=== PATIENT | female | born 1995 | race Caucasian/White ===

== ENCOUNTER 2016-07-27 06:32 | Emergency (ER) | payer OTHER ==
[2016-07-27] MEDS ORDERED: Ondansetron INJ* 2 MG/ML VIAL IV ONE (06:53)
[2016-07-27] MEDS ORDERED: NS 0.9% 1000 ML* 1,000 ML IV ONE ×2 (06:53→12:24)
[2016-07-27 07:16] LABS: Hematocrit 42 % (35-47); Mean Corpuscular HGB Conc 33 g/dl (31-36); Mean Corpuscular Hemoglobin 28 pg (27-31); Mean Corpuscular Volume 85 fL (80-97); Mean Platelet Volume 9 um3 (7.4-10.4); Red Blood Count 4.99 10^6/ul (4.0-5.4); Red Cell Distribution Width 13 % (10.5-15); White Blood Count 10.3 10^3/ul (3.5-10.8)
[2016-07-27] MEDS ORDERED: Morphine INJ* 4 MG/ML 1 ML SYRINGE IV ONE (07:25)
[2016-07-27 07:31] LABS: Albumin 4.5 g/dL (3.2-5.2); BUN/Creatinine Ratio 16.3 (8-20); C Reactive Protein 4.01 mg/L (< 5.00); Calcium 9.7 mg/dL (8.6-10.3); EGFR African American 93.1 (>60); EGFR Non-African American 72.4 (>60); Globulin 3.1 g/dL (2-4); Magnesium 1.6 mg/dL (1.9-2.7); Potassium 3.7 mmol/L (3.5-5.0); Total Bilirubin 0.4 mg/dL (0.2-1.0); Total Protein 7.6 g/dL (6.4-8.9)
--- NOTE | 2016-07-27 08:29 | RAD ---
INDICATION: ] Right upper quadrant pain. Vomiting. COMPARISON: None TECHNIQUE: Longitudinal and transverse scans of the right upper quadrant were obtained. Doppler interrogation of the hepatic and portal venous system was performed. FINDINGS: Liver: The liver is normal in size and echogenicity. There are no focal masses. The liver measures 17.3 cm in cephalocaudal dimension. Vessels: There is normal hepatic and portal venous flow. Bile ducts: There is no evidence of intrahepatic or extrahepatic ductal dilatation. The common duct measures 0.2 cm. Gallbladder: The sonographic appearance of the gallbladder is normal. There is no evidence of cholelithiasis, thickening of the gallbladder wall, or pericholecystic fluid. Pancreas: The visualized pancreas appears normal Right kidney: The right kidney is normal in size and echogenicity. There are no masses or calculi. There is no evidence of hydronephrosis. The right kidney measures 10.6 x 3.6 x 5.2 cm. IVC and aorta: The aorta and superior vena cava appear normal. Fluid: There is no ascites. Other: None. IMPRESSION: NORMAL STUDY.
[2016-07-27] MEDS ORDERED: Al Hydrox/Mg Hydrox/Simet LIQ* 30 ML UDC PO ONE (08:39)
[2016-07-27] MEDS ORDERED: Lidocaine 2% VISCOUS* 15 ML UDC PO ONE (08:39)
[2016-07-27] MEDS ORDERED: Lidocaine 2% VISCOUS* 15 ML UDC ONE (09:57)
[2016-07-27] MEDS ORDERED: oxyCODONE/Acetamin 5/325 MG* TAB PO ONE (10:31)
--- NOTE | 2016-07-27 11:03 | RAD ---
Indication: Epigastric pain and vomiting since this morning. Post appendectomy. Comparison: Abdominal ultrasound of the same date. Technique: Supine and upright abdomen. Report: Negative for free air beneath the diaphragm. Moderately distended stomach with air-fluid level. No dilated small or large bowel loops evident. Negative for significant small or large bowel air-fluid levels. No suspicious calcifications or mass effect. Unremarkable soft tissue contours. Clear lung bases. IMPRESSION: No acute abdominal pelvic pathologic process evident.
[2016-07-27] MEDS ORDERED: Acetaminophen TAB* 325 MG PO ONE (12:24)
[2016-07-27 13:34] VITALS: BP 106/50
--- NOTE | 2016-07-27 16:31 | ED ---
Shane Henry Adam, scribed for Cody Velázquez MD on 07/27/16 at 0832 . Abdominal Pain/Female - HPI Summary HPI Summary: Pt is a 20 year old female presenting with abdominal pain. The pain set on at approximately 00:00 this morning. It has been constant but fluctuating in severity. It radiates to her back as well. Pt also reports vomiting and chills. She took Tylenol but vomited it up. She states that she has not had much of an appetite. She last ate some pears at approximately 01:00. Before that she had eaten food yesterday at 12:00 and 17:00, including meatballs. Pt denies constipation, diarrhea, urinary symptoms, and black stools. She denies ever having this pain before. Positive hx of appy. She denies hx of gall stones or gastric ulcers. She denies any other PMHx. Pt has a 3 month old son and has not had a MP yet since the . - History of Current Complaint Chief Complaint: EDAbdPain Stated Complaint: VOMITING/ABD PAIN Time Seen by Provider: 07/27/16 07:18 Hx Obtained From: Patient Onset/Duration: Sudden Onset, Lasting Hours, Still Present Timing: Constant Severity Initially: Moderate Severity Currently: Moderate Pain Intensity: 9 Pain Scale Used: 0-10 Numeric Location: Diffuse, Discrete At: RUQ, Epigastric Radiates: Yes Radiates to: Back Aggravating Factor(s): Nothing Alleviating Factor(s): Nothing Associated Signs and Symptoms: Positive: Vomiting, Other: - Chills. Negative: Constipation, Blood in Stool, Urinary Symptoms, Diarrhea Allergies/Adverse Reactions: Allergies Allergy/AdvReac Type Severity Reaction Status Date / Time Ampicillin Allergy Intermediate Itching Verified 04/19/16 06:22 PMH/Surg Hx/FS Hx/Imm Hx Respiratory History: Reports: Hx Asthma - SPORTS INDUCED ASTHMA Sensory History: Denies: Hx Contacts or Glasses, Hx Hearing Aid Opthamlomology History: Denies: Hx Contacts or Glasses Neurological History: Reports: Hx Migraine - 1 Q 3 MONTHS- [place] WITH IBUPROFEN AND TYLENOL Psychiatric History: Reports: Hx Anxiety - on zoloft, Hx Depression Denies: Hx Eating Disorder, Hx of Violent Episodes Against Others - Surgical History Surgery Procedure, Year, and Place: WISDOM TEETH-05/2013[facility]; July 19, 2013 appendectomy and cauterized lesion endometiosis Hx Anesthesia Reactions: No Infectious Disease History: No Infectious Disease History: Denies: History Other Infectious Disease, Traveled Outside the [place] in Last 30 Days - Family History Known Family History: Positive: Other - Bipolar (father) - Social History Occupation: Employed Full-time Lives: With Family - Mother Alcohol Use: None Hx Substance Use: No Substance Use Type: Reports: None Hx Tobacco Use: No Smoking Status (MU): Never Smoked Tobacco Have You Smoked in the Last Year: No Review of Systems Positive: Chills. Negative: Fever Negative: Erythema Negative: Sore Throat Negative: Chest Pain Negative: Shortness Of Breath, Cough Positive: Abdominal Pain, Vomiting, Nausea. Negative: Diarrhea Genitourinary: Negative Negative: dysuria, hematuria Negative: Myalgia, Edema Negative: Rash Neurological: Other - Negative dizziness All Other Systems Reviewed And Are Negative: Yes Physical Exam - Summary Physical Exam Summary: Constitutional: Well-developed, Well-nourished, Alert. (-) Distressed Skin: Warm, Dry HENT: Normocephalic; Atraumatic Eyes: Conjunctiva normal Neck: Musculoskeletal ROM normal neck. (-) JVD, (-) Stridor, (-) Tracheal deviation Cardio: Rhythm regular, rate normal, Heart sounds normal; Intact distal pulses; The pedal pulses are 2+ and symmetric. Radial pulses are 2+ and symmetric. (-) Murmur Pulmonary/Chest wall: Effort normal. (-) Respiratory distress, (-) Wheezes, (-) Rales Abd: Tenderness in the RUQ and epigastric region with guarding. Musculoskeletal: (-) Edema Lymph: (-) Cervical adenopathy Neuro: Alert, Oriented x3 Psych: Mood and affect Normal Triage Information Reviewed: Yes Vital Signs On Initial Exam: Initial Vitals Temp Pulse Resp BP Pulse Ox 97.6 F 92 18 136/75 96 07/27/16 06:33 07/27/16 06:33 07/27/16 06:33 07/27/16 06:33 07/27/16 06:33 Vital Signs Reviewed: Yes - [place] Coma Scale Coma Scale Total: 15 Diagnostics - Vital Signs Vital Signs Temp Pulse Resp BP Pulse Ox 07/27/16 07:00 93 96 07/27/16 06:51 86 138/82 97 07/27/16 06:41 89 98 07/27/16 06:33 97.6 F 92 18 136/75 96 - Laboratory Lab Results: Lab Results 07/27/16 Range/Units 07:07 WBC 10.3 (3.5-10.8) 10^3/ul RBC 4.99 (4.0-5.4) 10^6/ul Hgb 14.0 (12.0-16.0) g/dl Hct 42 (35-47) % MCV 85 (80-97) fL MCH 28 (27-31) pg MCHC 33 (31-36) g/dl RDW 13 (10.5-15) % Plt Count 251 (150-450) 10^3/ul MPV 9 (7.4-10.4) um3 Neut % (Auto) 86.1 H (38-83) % Lymph % (Auto) 9.4 L (25-47) % [place] % (Auto) 3.7 (1-9) % Eos % (Auto) 0.5 (0-6) % Baso % (Auto) 0.3 (0-2) % Absolute Neuts (auto) 8.9 H (1.5-7.7) 10^3/ul Absolute Lymphs (auto) 1.0 (1.0-4.8) 10^3/ul Absolute Monos (auto) 0.4 (0-0.8) 10^3/ul Absolute Eos (auto) 0.1 (0-0.6) 10^3/ul Absolute Basos (auto) 0 (0-0.2) 10^3/ul Absolute Nucleated RBC 0 10^3/ul Nucleated RBC % 0 Result Diagrams: 07/27/16 07:07 07/27/16 07:07 Lab Statement: Any lab studies that have been ordered have been reviewed, and results considered in the medical decision making process. - Radiology ABDOMEN X-RAY Radiology Interpretation Completed By: Radiologist - IMPRESSION: No acute abdominal pelvic pathologic process evident. - Additional Comments Diagnostic Additional Comments: Lactic Acid - 2.3 Abdomen Ultrasound - Normal Study Re-Evaluation - Re-Evaluation First Eval Re-Evaluation Time: 10:29 - Pt states that the pain is worse. She is still quite tender over the epigastrium. Going to order oral pain meds and abdomen X- ray. Change: Worse Second Eval Re-Evaluation Time: 11:46 - Patient is feeling better. She will be discharged. Pt did have mucusy diarrhea while in the ED. Change: Improved Abdominal Pain Fem Course/Dx - Course Course Of Treatment: Cancelled the patient's pantoprazole. Discussed her medications with the pharmacist. Will give Tylenol #3, ranitidine, and Zofran. - Diagnoses Provider Diagnoses: Gastroenteritis Discharge - Discharge Plan Condition: Stable Disposition: HOME Prescriptions: Acetaminop/Codeine 30 MG TAB* [Tylenol/Codeine 30 MG TAB*] 1 tab PO Q8H PRN #9 tab MDD 3 PRN Reason: Pain Scale 1-5 Ondansetron ODT TAB* [Zofran 4 MG Odt TAB*] 4 mg PO Q8H PRN #10 tab.odt PRN Reason: Nausea/Vomiting Ranitidine TAB (NF) [Zantac TAB (NF)] 150 mg PO BID #28 tab Patient Education Materials: Gastroenteritis (ED) Forms: *Work Release Referrals: Navid Elizabeth III, GROUP EXERCISE CLASS INSTRUCTOR [Primary Care Provider] - Additional Instructions: Follow up with Navid Elizabeth III this week. The documentation as recorded by the Shane carrero Adam accurately reflects the service I personally performed and the decisions made by , Cody Velázquez MD.
== END 2016-07-27 13:56 | disposition home or self-care (01) ==
LOC: ED 06:32
DX: K52.9 Noninfective gastroenteritis and colitis, unspecified (principal); R10.11 Right upper quadrant pain; R11.2 Nausea with vomiting, unspecified; R68.83 Chills (without fever)
CPT/HCPCS: 36415; 74020; 76705; 80053; 83605; 83690; 83735; 85025; 86140; 96374; 96375; 99283; A9270-GY; J2270; J2405

== ENCOUNTER 2017-01-22 01:48 | Emergency (ER) | payer OTHER, MEDICAID ==
[2017-01-22 03:22] LABS: Hematocrit 40 % (35-47); Hemoglobin 13.3 g/dl (12.0-16.0); Mean Corpuscular HGB Conc 34 g/dl (31-36); Mean Corpuscular Hemoglobin 29 pg (27-31); Mean Corpuscular Volume 85 fL (80-97); Mean Platelet Volume 8 um3 (7.4-10.4); Red Blood Count 4.65 10^6/ul (4.0-5.4); Red Cell Distribution Width 14 % (10.5-15); White Blood Count 6.8 10^3/ul (3.5-10.8)
[2017-01-22 03:38] LABS: ALT 17 U/L (7-52); AST 14 U/L (13-39); Albumin 4.5 g/dL (3.2-5.2); Alkaline Phosphatase 96 U/L (34-104); Anion Gap 7 mmol/L (2-11); BUN/Creatinine Ratio 16.1 (8-20); Blood Urea Nitrogen 14 mg/dL (6-24); CO2 Carbon Dioxide 26 mmol/L (22-32); Calcium 9.5 mg/dL (8.6-10.3); Chloride 106 mmol/L (101-111); EGFR African American 105.7 (>60); EGFR Non-African American 82.2 (>60); Globulin 2.7 g/dL (2-4); Glucose 100 mg/dL (70-100); Lipase 25 U/L (11.0-82.0); Potassium 3.8 mmol/L (3.5-5.0); Sodium 139 mmol/L (133-145); Total Protein 7.2 g/dL (6.4-8.9)
[2017-01-22] MEDS ORDERED: Morphine INJ* 2 MG/ML 1 ML CARPUJECT IV ONE (04:06)
[2017-01-22] MEDS ORDERED: NS 0.9% 1000 ML* 1,000 ML IV ONE (04:06)
[2017-01-22] MEDS ORDERED: Ondansetron INJ* 2 MG/ML VIAL IV ONE (04:06)
[2017-01-22 04:07] LABS: Urine Bacteria Absent (Absent); Urine Bilirubin Negative (Negative); Urine Glucose Negative (Negative); Urine Nitrite Negative (Negative)
[2017-01-22 05:33] VITALS: BP 135/96
--- NOTE | 2017-01-22 05:43 | ED ---
Jose Henry Rebecca, scribed for Aj Gilesuel on 01/22/17 at 0406 . Abdominal Pain/Female - HPI Summary HPI Summary: Pt is a 21 y/o F who presents to ED c/o diffuse abdominal pain. Pain has been present for several months, worsening since onset. Pain is currently severe, ranked 10/10 and characterized as cramping. Sx aggravated and alleviated by nothing. Additionally c/o vaginal discharge described as "mucous" then last evening it became "blood tinged." Denies N/V. At 0100 this morning, the pt had a positive home test. - History of Current Complaint Chief Complaint: EDAbdPain Stated Complaint: ABD PAIN/POSS Time Seen by Provider: 01/22/17 04:00 Hx Obtained From: Patient Hx Last Menstrual Period: 2 wks ago Onset/Duration: Still Present Severity Currently: Severe Pain Intensity: 10 Pain Scale Used: 0-10 Numeric Location: Diffuse Character: Cramping Aggravating Factor(s): Nothing Alleviating Factor(s): Nothing Associated Signs and Symptoms: Positive: Vaginal Discharge Allergies/Adverse Reactions: Allergies Allergy/AdvReac Type Severity Reaction Status Date / Time Ampicillin Allergy Intermediate Itching Verified 01/22/17 01:55 PMH/Surg Hx/FS Hx/Imm Hx Respiratory History: Reports: Hx Asthma - SPORTS INDUCED ASTHMA History: Reports: Other Problems/Disorders - Hx endometriosis Sensory History: Denies: Hx Contacts or Glasses, Hx Hearing Aid Opthamlomology History: Denies: Hx Contacts or Glasses Neurological History: Reports: Hx Migraine - 1 Q 3 MONTHS- [place] WITH IBUPROFEN AND TYLENOL Psychiatric History: Reports: Hx Anxiety - on zoloft, Hx Depression Denies: Hx Eating Disorder, Hx of Violent Episodes Against Others - Surgical History Surgery Procedure, Year, and Place: WISDOM TEETH-05/2013[facility]; July 19, 2013 appendectomy and cauterized lesion endometiosis Hx Anesthesia Reactions: No Infectious Disease History: No Infectious Disease History: Denies: History Other Infectious Disease, Traveled Outside the [place] in Last 30 Days - Family History Known Family History: Positive: Other - Bipolar (father) - Social History Alcohol Use: None Hx Substance Use: No Substance Use Type: Reports: None Hx Tobacco Use: No Smoking Status (MU): Never Smoked Tobacco Have You Smoked in the Last Year: No Review of Systems Positive: Abdominal Pain. Negative: Vomiting, Nausea Positive: discharge All Other Systems Reviewed And Are Negative: Yes Physical Exam - Summary Physical Exam Summary: Appearance: Well appearing, no pain distress Skin: warm, dry, reflects adequate perfusion Head/face: normal Eyes: EOMI, BENEDICTO ENT: normal Neck: supple, nontender Respiratory: CTA, breath sounds present Cardiovascular: RRR, pulses symmetrical Abdomen: diffuse tenderness, soft Bowel: present Musculoskeletal: normal, strength/ROM intact Neuro: normal, sensory motor intact, A&Ox3 Triage Information Reviewed: Yes Vital Signs On Initial Exam: Initial Vitals Temp Pulse Resp BP Pulse Ox 98.7 F 71 14 141/81 98 01/22/17 01:51 01/22/17 01:51 01/22/17 01:51 01/22/17 01:51 01/22/17 01:51 Vital Signs Reviewed: Yes Diagnostics - Vital Signs Vital Signs Temp Pulse Resp BP Pulse Ox 01/22/17 01:51 98.7 F 71 14 141/81 98 - Laboratory Lab Results: Lab Results 01/22/17 01/22/17 Range/Units 03:08 03:08 WBC 6.8 (3.5-10.8) 10^3/ul RBC 4.65 (4.0-5.4) 10^6/ul Hgb 13.3 (12.0-16.0) g/dl Hct 40 (35-47) % MCV 85 (80-97) fL MCH 29 (27-31) pg MCHC 34 (31-36) g/dl RDW 14 (10.5-15) % Plt Count 255 (150-450) 10^3/ul MPV 8 (7.4-10.4) um3 Neut % (Auto) 37.2 L (38-83) % Lymph % (Auto) 52.9 H (25-47) % [place] % (Auto) 6.9 (1-9) % Eos % (Auto) 2.5 (0-6) % Baso % (Auto) 0.5 (0-2) % Absolute Neuts (auto) 2.5 (1.5-7.7) 10^3/ul Absolute Lymphs (auto) 3.6 (1.0-4.8) 10^3/ul Absolute Monos (auto) 0.5 (0-0.8) 10^3/ul Absolute Eos (auto) 0.2 (0-0.6) 10^3/ul Absolute Basos (auto) 0 (0-0.2) 10^3/ul Absolute Nucleated RBC 0 10^3/ul Nucleated RBC % 0 Sodium 139 (133-145) mmol/L Potassium 3.8 (3.5-5.0) mmol/L Chloride 106 (101-111) mmol/L Carbon Dioxide 26 (22-32) mmol/L Anion Gap 7 (2-11) mmol/L BUN 14 (6-24) mg/dL Creatinine 0.87 (0.51-0.95) mg/dL Est GFR ( Amer) 105.7 (>60) Est GFR (Non-Af Amer) 82.2 (>60) BUN/Creatinine Ratio 16.1 (8-20) Glucose 100 (70-100) mg/dL Calcium 9.5 (8.6-10.3) mg/dL Total Bilirubin 0.30 (0.2-1.0) mg/dL AST 14 (13-39) U/L ALT 17 (7-52) U/L Alkaline Phosphatase 96 (34-104) U/L Total Protein 7.2 (6.4-8.9) g/dL Albumin 4.5 (3.2-5.2) g/dL Globulin 2.7 (2-4) g/dL Albumin/Globulin Ratio 1.7 (1-3) Lipase 25 (11.0-82.0) U/L Beta HCG, Quant < 0.60 mIU/mL Result Diagrams: 01/22/17 03:08 01/22/17 03:08 Lab Statement: Any lab studies that have been ordered have been reviewed, and results considered in the medical decision making process. Re-Evaluation - Re-Evaluation First Eval Re-Evaluation Time: 04:37 Comment: At this point, they refuse the CT. Want to wait until 0700 to have an US. Abdominal Pain Fem Course/Dx - Course Course Of Treatment: Pt is a 21 y/o F who presents to ED c/o diffuse abdominal pain. Pain has been present for several months, worsening since onset. Pain is currently severe, ranked 10/10 and characterized as cramping. Sx aggravated and alleviated by nothing. Additionally c/o vaginal discharge described as "mucous" then last evening it became "blood tinged." Denies N/V. At 0100 this morning, the pt had a positive home test. Beta HCG <0.6. In the ED course, pt received morphine, Initially, pt refused CT Abd/Pel, opting to wait until 7 a.m. when she can receive an US. Pt then decides she would like to sign out AMA. Risks of doing such were discussed and explained. Pt verbalizes understanding and proceeds to sign out AMA. She understands and agrees. Elevated BP noted and advised to follow up - Diagnoses Provider Diagnoses: Abdominal pain, Left against medical advice Discharge - Discharge Plan Condition: Stable Disposition: AGAINST MEDICAL ADVICE The documentation as recorded by the Jose carrero Rebecca accurately reflects the service I personally performed and the decisions made by me, Ryan Giles.
== END 2017-01-22 05:35 | disposition left against medical advice (07) ==
LOC: ED 01:48
DX: R10.9 Unspecified abdominal pain (principal); Z53.21 Procedure and treatment not carried out due to patient leaving prior to being seen by health care provider
CPT/HCPCS: 36415; 80053; 81003; 81015; 83690; 84702; 85025; 96374; 96375; 99283

== ENCOUNTER 2017-06-08 21:05 | Emergency (ER) | payer MEDICAID, OTHER ==
[2017-06-09] MEDS ORDERED: Morphine INJ* 4 MG/ML 1 ML CARPUJECT IV ONE (01:01)
[2017-06-09] MEDS ORDERED: NS 0.9% 1000 ML* 1,000 ML IV ONE (01:01)
[2017-06-09] MEDS ORDERED: Ketorolac INJ* 30 MG/ML 1 ML VIAL IV ONE (01:01)
[2017-06-09] MEDS ORDERED: Metoclopramide IV* 5 MG/ML 2 ML VIAL IV SLOW PU ONE (01:03)
[2017-06-09 01:33] LABS: Urine Appearance Clear; Urine Blood 1+ (Negative); Urine Color Yellow; Urine Ketones Negative (Negative); Urine Protein Negative (Negative); Urine Urobilinogen Negative (Negative)
[2017-06-09 01:51] LABS: ABS Basophils 0 10^3/ul (0-0.2); ABS Eosinophils 0.1 10^3/ul (0-0.6); ABS Lymphocytes 3.3 10^3/ul (1.0-4.8); ABS Monocytes 0.4 10^3/ul (0-0.8); ABS Neutrophils 3.8 10^3/ul (1.5-7.7); ABS Nucleated RBC 0 10^3/ul; Eosinophil % 1.8 % (0-6); Hematocrit 40 % (35-47); Hemoglobin 13.8 g/dl (12.0-16.0); Lymphocyte % 42.3 % (25-47); Mean Corpuscular HGB Conc 35 g/dl (31-36); Mean Corpuscular Hemoglobin 29 pg (27-31); Mean Corpuscular Volume 85 fL (80-97); Mean Platelet Volume 9 um3 (7.4-10.4); Nucleated Red Blood Cells % 0.1; Platelet Count 264 10^3/ul (150-450); Red Blood Count 4.74 10^6/ul (4.0-5.4); Red Cell Distribution Width 14 % (10.5-15); White Blood Count 7.7 10^3/ul (3.5-10.8)
[2017-06-09 02:05] LABS: EGFR Non-African American 90.5 (>60)
[2017-06-09 05:11] VITALS: BP 101/77
--- NOTE | 2017-06-09 05:18 | ED ---
Ankit Henry Angela, scribed for Sunitha Pimentel MD on 06/09/17 at 0128 . GI/ HPI - HPI Summary HPI Summary: This pt is a 21 y[facility] and vaginal bleeding today. Pt reports that she has had vaginal bleeding for 1 hour today and has passed clots and one tissue of approximately 1 inch. Pt notes bleeding has stopped currently. She currently c/o abdominal cramping, described as sharp pain and rates it 10/10 in severity. Pt has taken Tylenol at 19:00 last night and ibuprofen at 19:30 last night. LMP: 2 weeks ago. She denies possibility of . PMHx: endometriosis. Pt has an IUD in place. - History of Current Complaint Chief Complaint: EDVaginalBleeding Time Seen by Provider: 06/09/17 00:36 Stated Complaint: CRAMPING/VAGINAL BLEEDING Hx Obtained From: Patient Hx Last Menstrual Period: 2 wks ago Onset/Duration: Started Hours Ago, Still Present Timing: Lasting Hours Current Severity: Moderate Vaginal Bleeding Description: Bright Red, Clots Pain Intensity: 10 Location of Pain: Diffuse Associated Signs and Symptoms: Positive: Other: - POS: vaginal bleeding. Negative: Nausea, Vomiting Aggravating Factor(s): Nothing Alleviating Factor(s): Nothing - Additional Pertinent History Primary Care Physician: JAMES - Allergy/Home Medications Allergies/Adverse Reactions: Allergies Allergy/AdvReac Type Severity Reaction Status Date / Time MS Ampicillin [Ampicillin] Allergy Intermediate Itching Verified 01/22/17 01:55 PMH/Surg Hx/FS Hx/Imm Hx Endocrine/Hematology History: Denies: Hx Diabetes Cardiovascular History: Denies: Hx Hypertension Respiratory History: Reports: Hx Asthma - SPORTS INDUCED ASTHMA History: Reports: Other Problems/Disorders - Hx endometriosis Sensory History: Denies: Hx Contacts or Glasses, Hx Hearing Aid Opthamlomology History: Denies: Hx Contacts or Glasses Neurological History: Reports: Hx Migraine - 1 Q 3 MONTHS- [place] WITH IBUPROFEN AND TYLENOL Psychiatric History: Reports: Hx Anxiety - on zoloft, Hx Depression Denies: Hx Eating Disorder, Hx of Violent Episodes Against Others - Surgical History Surgery Procedure, Year, and Place: WISDOM TEETH-05/2013[facility]; July 19, 2013 appendectomy and cauterized lesion endometiosis Hx Anesthesia Reactions: No - Immunization History Date of Tetanus Vaccine: utd Date of Influenza Vaccine: utd Infectious Disease History: No Infectious Disease History: Denies: History Other Infectious Disease, Traveled Outside the [place] in Last 30 Days - Family History Known Family History: Positive: Other - Bipolar (father) - Social History Alcohol Use: Rare Hx Substance Use: No Substance Use Type: Reports: None Hx Tobacco Use: No Smoking Status (MU): Never Smoked Tobacco Have You Smoked in the Last Year: No Review of Systems Negative: Fever, Chills Cardiovascular: Negative Respiratory: Negative Positive: Abdominal Pain. Negative: Vomiting, Nausea Genitourinary: Other - vaginal bleeding, passing clots Skin: Negative Neurological: Negative All Other Systems Reviewed And Are Negative: Yes Physical Exam - Summary Physical Exam Summary: VITAL SIGNS: Reviewed. GENERAL: Patient is a well-developed and nourished female who is lying comfortable in the stretcher. Patient is not in any acute respiratory distress. HEAD AND FACE: No signs of trauma. No ecchymosis, hematomas or skull depressions. No sinus tenderness. EYES: PERRLA, EOMI x 2, No injected conjunctiva, no nystagmus. EARS: Hearing grossly intact. Ear canals and tympanic membranes are within normal limits. MOUTH: Oropharynx within normal limits. NECK: Supple, trachea is midline, no adenopathy, no JVD, no carotid bruit, no c- spine tenderness, neck with full ROM. CHEST: Symmetric, no tenderness at palpation LUNGS: Clear to auscultation bilaterally. No wheezing or crackles. CVS: Regular rate and rhythm, S1 and S2 present, no murmurs or gallops appreciated. ABDOMEN: Soft. Suprapubic tenderness and right pelvic tenderness. No signs of distention. No rebound no guarding, and no masses palpated. Bowel sounds are normal. EXTREMITIES: FROM in all major joints, no edema, no cyanosis or clubbing. NEURO: Alert and oriented x 3. No acute neurological deficits. Speech is normal and follows commands. SKIN: Dry and warm Triage Information Reviewed: Yes Vital Signs On Initial Exam: Initial Vitals Temp Pulse Resp BP Pulse Ox 98.5 F 78 20 128/68 100 06/08/17 21:19 06/08/17 21:19 06/08/17 21:19 06/08/17 21:19 06/08/17 21:19 Vital Signs Reviewed: Yes Diagnostics - Vital Signs Vital Signs Temp Pulse Resp BP Pulse Ox 06/08/17 23:25 98.4 F 75 134/74 100 06/08/17 21:19 98.5 F 78 20 128/68 100 - Laboratory Result Diagrams: 06/09/17 01:15 06/09/17 01:15 Lab Statement: Any lab studies that have been ordered have been reviewed, and results considered in the medical decision making process. - Ultrasound No standard instances Ultrasound Interpretation: No Acute Changes - Transvaginal US IMPRESSION: No ovarian torsion bilaterally. Color flow with appropriate arterial and venous waveforms. 1.2 cm dominant follicle right ovary. No free fluid. IUD within uterus. Endometrial stripe complex not well seen. Dr. Pimentel has reviewed this radiology report. Ultrasound Interpretation Completed By: Abelino MEDEIROS Course/Dx - Course Assessment/Plan: This pt is a 21 y/[facility] [place] cr[facility] and vaginal bleeding today. Pt reports that she has had vaginal bleeding for 1 hour today and has passed clots and one tissue of approximately 1 inch. Pt notes bleeding has stopped currently. She currently c/o abdominal cramping, described as sharp pain and rates it 10/10 in severity. Pt has taken Tylenol at 19:00 last night and ibuprofen at 19:30 last night. LMP: 2 weeks ago. She denies possibility of . PMHx: endometriosis. Pt has an IUD in place. In the ED course, the pt was given IV fluids, Toradol, Reglan, and morphine. Transvaginal US is negative for ovarian torsion. Pt will be discharged to home with a prescription for Percocet. She is advised to follow up with her PCP. Pt is instructed to return to the ED for any worsening or new symptoms. - Diagnoses Provider Diagnoses: Pelvic pain Discharge - Discharge Plan Condition: Stable Disposition: HOME Prescriptions: oxyCODONE/Acetamin 5/325 MG* [Percocet 5/325 TAB*] 2 tab PO Q6H PRN #14 tab MDD 4 PRN Reason: Pain Patient Education Materials: Pelvic Pain in Women (ED) Referrals: Navid Elizabeth III LIGHT RAIL TRAIN OPERATOR [Primary Care Provider] - Additional Instructions: Please follow up with your primary care provider. RETURN TO EMERGENCY DEPARTMENT FOR ANY NEW OR WORSENING SYMPTOMS. The documentation as recorded by the scribe, Pham,Brittany accurately reflects the service I personally performed and the decisions made by me, Sunitha Pimentel MD.
--- NOTE | 2017-06-09 07:49 | RAD ---
INDICATION: Ovarian torsion COMPARISON: None TECHNIQUE: Longitudinal and transverse transvaginal scans of the pelvis were obtained. FINDINGS: Uterus: The uterus is normal in size. There are no focal masses. The uterus measures 8.2 x 3.6 x 4.4 cm. Endometrial thickness: The endometrium does not appear thickened. There is an IUD in place. Free fluid: There is no significant free fluid . Ovaries: The ovaries are normal in size. The right ovary measures 3.4 x 2.0 x 2.7 cm. The left ovary measures 2.9 x 1.5 x 1.9 cm. There is a 1.2 cm right ovarian follicle. Doppler interrogation demonstrates flow to each ovary. Other: None IMPRESSION: NO EVIDENCE OF TORSION.
== END 2017-06-09 05:10 | disposition home or self-care (01) ==
LOC: ED 21:05
DX: R10.2 Pelvic and perineal pain (principal); Z97.5 Presence of (intrauterine) contraceptive device; F41.9 Anxiety disorder, unspecified; F32.9 Major depressive disorder, single episode, unspecified; N80.9 Endometriosis, unspecified
CPT/HCPCS: 36415; 76830; 80053; 81003; 81015; 83605; 84702; 85025; 86140; 99283; J1885; J2270; J2765

== ENCOUNTER 2018-03-23 13:52 | Emergency (ER) | payer OTHER ==
[2018-03-23 14:32] VITALS: BP 123/69
--- NOTE | 2018-03-23 15:06 | UC ---
Respiratory Complaint HPI - HPI Summary HPI Summary: 22-year-old female presents with one-week history of cold-like symptoms including nasal congestion, clear nasal drainage, mild sore throat, and a nonproductive cough. States the cough is worse at night and feels wheezy at times. She does have a history of asthma however is currently out of her albuterol inhaler. States her 1 year old son has been ill with similar symptoms. States she was supposed to help with her primary care provider this past Monday however the appointment was canceled and his hip to be rescheduled. Denies any fever, chills, ear pain, dysphagia, chest pain, shortness of breath , abdominal pain, nausea, or vomiting. - History of Current Complaint Chief Complaint: UCRespiratory Stated Complaint: COUGH,CONGESTED Time Seen by Provider: 03/23/18 14:44 Hx Obtained From: Patient Hx Last Menstrual Period: 03/16/18 ?: No Onset/Duration: Gradual Onset, Lasting Days - 7 Severity Currently: Moderate Pain Intensity: 8 Character: Cough: Nonproductive Aggravating Factors: Recumbent Position Alleviating Factors: Nothing Associated Signs And Symptoms: Positive: Wheezing, URI, Nasal Congestion. Negative: Dyspnea, Fever, Chills, Pleuritic Chest Pain, Hemoptysis, Hoarseness, Sinus Discomfort - Allergies/Home Medications Allergies/Adverse Reactions: Allergies Allergy/AdvReac Type Severity Reaction Status Date / Time ampicillin Allergy Itching Verified 03/23/18 14:32 PMH/Surg Hx/FS Hx/Imm Hx Previously Healthy: Yes Respiratory History: Asthma - Surgical History Surgical History: Yes Surgery Procedure, Year, and Place: WIS[facility] TEETH-05/2013[facility]; July 19, 2013 appendectomy and cauterized lesion endometiosis - Family History Known Family History: Positive: Other - Bipolar (father) - Social History Alcohol Use: Rare Substance Use Type: None Smoking Status (MU): Never Smoked Tobacco Have You Smoked in the Last Year: No - Immunization History Most Recent Influenza Vaccination: up to date Most Recent Tetanus Shot: up to date Most Recent Pneumonia Vaccination: na Review of Systems All Other Systems Reviewed And Are Negative: Yes Constitutional: Negative: Fever, Chills Skin: Negative: Rash Eyes: Negative: Drainage, Eye Redness ENT: Positive: Sore Throat, Nasal Discharge, Sinus Congestion. Negative: Sinus Pain/Tenderness Respiratory: Positive: Cough, Other - Wheezing. Negative: Shortness Of Breath Cardiovascular: Negative: Palpitations, Chest Pain Gastrointestinal: Negative: Abdominal Pain, Vomiting, Nausea Is Patient Immunocompromised?: No Physical Exam Triage Information Reviewed: Yes Appearance: Well-Appearing, No Pain Distress, Well-Nourished Vital Signs: Initial Vital Signs Temp 98.8 F 03/23/18 14:28 Pulse 80 03/23/18 14:28 Resp 18 03/23/18 14:28 BP 123/69 03/23/18 14:28 Pulse Ox 100 03/23/18 14:28 Vital Signs Reviewed: Yes Eyes: Positive: Conjunctiva Clear. Negative: Discharge ENT: Positive: Hearing grossly normal, Pharyngeal erythema - Mild with cobblestoning, Nasal congestion, TMs normal, Uvula midline. Negative: Nasal drainage, Tonsillar swelling, Tonsillar exudate, Trismus, Sinus tenderness Neck: Positive: Supple, Nontender, No Lymphadenopathy Respiratory: Positive: Chest non-tender, Lungs clear, Normal breath sounds, No respiratory distress Cardiovascular: Positive: RRR, No Murmur, Pulses Normal, Brisk Capillary Refill Abdomen Description: Positive: Nontender, No Organomegaly, Soft. Negative: Distended, Guarding Neurological: Positive: Alert Skin: Negative: Rashes UC Diagnostic Evaluation - Laboratory O2 Sat by Pulse Oximetry: 100 Respiratory Course/Dx - Course Course Of Treatment: 22-year-old female presents with one-week history of cold- like symptoms including nasal congestion, clear nasal drainage, mild sore throat , and a nonproductive cough. States the cough is worse at night and feels wheezy at times. She does have a history of asthma however is currently out of her albuterol inhaler. States her 1 year old son has been ill with similar symptoms. Exam revealed some nasal congestion, mild pharyngeal erythema with cobblestoning. No tonsilar edema or exudate. Bilateral breath sounds clear. Consistent with viral URI. Will treat symptomatically and provide her with an albuterol inhaler to use PRN. She is to follow up with her primary care provider in 7 days if symptoms persist. Warning symptoms reviewed. Verbalizes understanding and agrees with POC. - Differential Dx/Diagnosis Differential Diagnosis/HQI/PQRI: Asthma, Bronchitis, Influenza, Lower Resp Infection, Sinusitis Provider Diagnoses: Viral URI Discharge - Sign-Out/Discharge Documenting (check all that apply): Patient Departure All imaging exams completed and their final reports reviewed: No Studies - Discharge Plan Condition: Stable Disposition: HOME Prescriptions: Albuterol HFA INHALER* [Ventolin HFA Inhaler*] 2 puff INH Q4H PRN #1 mdi PRN Reason: Sob/Wheezing Benzonatate CAP* [Tessalon 100 MG CAP*] 100 mg PO TID PRN #30 cap PRN Reason: Cough Fluticasone NASAL SPRAY 50MCG* [Flonase NASAL SPRAY 50MCG*] 2 spray BOTH NARES DAILY #1 btl Patient Education Materials: Upper Respiratory Infection (ED) Forms: *Work Release Referrals: Navid Elizabeth III, [employer] [Primary Care Provider] - 7 Days (If symptoms persist) Additional Instructions: Your history and exam are consistent with viral upper respiratory infection. Viral infections do not respond to antibiotics and typically run their course over 7-10 days. Use a saline rinse kit such as Neti Pot or NeilMed at least twice a day. Start fluticasone nasal spray 2 sprays each nostril once a day. you can take an over the counter decongestant such as Sudafed according to directions as needed for nasal congestion. Take acetaminophen (Tylenol) or ibuprofen (Advil, Motrin) according to directions as needed for fever or pain. I have sent in a prescription for your albuterol inhaler. Take 2 puffs every 4- 6 hours as needed for shortness of breath, wheezing, or coughing fits. Take Tessalon Perles 1 cap every 8 hours as needed for cough. Follow-up with your primary care provider in 7 days if symptoms persist. Seek immediate medical attention if you have a persistent fever greater than 100.5 F despite taking acetaminophen or ibuprofen, you are unable to swallow, has difficulty breathing, or have any worsening of symptoms. - Billing Disposition and Condition Condition: STABLE Disposition: Home
== END 2018-03-23 15:25 | disposition home or self-care (01) ==
LOC: UCEAST 13:52
DX: J06.9 Acute upper respiratory infection, unspecified (principal); J45.909 Unspecified asthma, uncomplicated; Z88.0 Allergy status to penicillin
CPT/HCPCS: 99212; G0463

== ENCOUNTER 2019-12-01 20:19 | Inpatient (IN) ==
[~2019-12-01 20:19] MED LIST: Lactated Ringers 1000 ml BAG 1,000 ML IV ONE
[2019-12-01] MEDS ORDERED: Lactated Ringers 1000 ml BAG 1,000 ML IV SCH (21:00)
[2019-12-01] MEDS ORDERED: Dibucaine 1% OINT 28.35 GM TUBE ONE (21:36)
[2019-12-01] MEDS ORDERED: Witch Hazel PAD JAR ONE (21:37)
[2019-12-01] MEDS ORDERED: Varicella Virus Vaccine Live 0.5 ML VIAL SUBCUT ONE (22:38)
[2019-12-01] MEDS ORDERED: Glycerin ADULT 2.4 gm SUPP PR PRN (22:38)
[2019-12-01] MEDS ORDERED: Witch Hazel PAD JAR TOPICAL PRN (22:38)
[2019-12-01] MEDS ORDERED: Dibucaine 1% OINT 28.35 GM TUBE PR PRN (22:38)
[2019-12-02 02:14] LABS: Urine Benzodiazepine Screen None Detected (None Detect); Urine Cannabinoids Screen None Detected (None Detect); Urine Opiates Screen None Detected (None Detect)
[2019-12-02 07:36] LABS: ABS Basophils 0.1 10^3/ul (0-0.2); ABS Lymphocytes 2.6 10^3/ul (1.0-4.8); ABS Monocytes 0.7 10^3/ul (0-0.8); ABS Neutrophils 10.9 10^3/ul (1.5-7.7); Eosinophil % 0.2 %; Hematocrit 34 % (35-47); Hemoglobin 12.1 g/dL (12.0-16.0); Lymphocyte % 17.9 %; Mean Corpuscular HGB Conc 35 g/dL (31-36); Mean Corpuscular Hemoglobin 30 pg (27-31); Mean Corpuscular Volume 86 fL (80-97); Platelet Count 215 10^3/uL (150-450); Red Cell Distribution Width 14 % (10-15); White Blood Count 14.3 10^3/uL (3.5-10.8)
[2019-12-04 08:03] VITALS: BP 125/72
== END 2019-12-04 11:03 | disposition home or self-care (01) | DRG 560 ==
LOC: MCHOBOUT 20:19 → MCHOB 20:20
PROVIDERS: ADMIT Midwife; ATTEND Midwife